=== PATIENT | female | born 1960 | race Caucasian/White ===

== ENCOUNTER 2021-01-28 20:34 | Inpatient (IN) | payer OTHER ==
[~2021-01-28] VITALS: Ht 162.6 cm; Wt 88.9 kg
[2021-01-28 21:45] LABS: BASOPHIL 0 % (0-2); EOSINOPHIL 0 % (0-5); HCT 37.8 % (37.0-47.0); HGB 12.5 g/dl (12.5-16.0); LYMPHOCYTE 16.2 % (15-48); MCH 29.2 pg (25.0-31.0); MCHC 33.1 g/dL (32.0-36.0); MCV 88.3 fL (78.0-100.0); MONOCYTE 6.5 % (0-12); MPV 10.6 fL (6.0-9.5); NEUTROPHIL 76.6 % (41-80); NRBC 0; PLT 146 K/uL (150-400); RBC 4.28 M/uL (4.20-5.40); RDW 12.3 % (11.5-14.0); WBC 4.5 K/uL (4.0-10.5)
[2021-01-28 21:59] LABS: BILIRUBIN - TOTAL 0.5 mg/dL (0.2-1.0); BUN/CREAT RATIO (CALC) 14.6 RATIO; CREATININE 0.82 mg/dL (0.51-0.95); GLOBULIN (CALCULATION) 3.8 g/dL; POTASSIUM 3.9 mmol/L (3.5-5.1); TOTAL PROTEIN 6.8 g/dL (6.4-8.2)
[2021-01-28 22:17] LABS: INFLUENZA A NAA NEGATIVE (NEGATIVE)
[2021-01-28 22:20] LABS: CORONAVIRUS 2019 SARS-COV-2 POSITIVE (NEGATIVE)
[2021-01-28 22:58] LABS: LACTIC ACID 1.1 mmol/L (0.4-1.9)
[2021-01-29 07:41] LABS: BASOPHIL 0 % (0-2); EOSINOPHIL 0 % (0-5); HCT 38.7 % (37.0-47.0); HGB 12.8 g/dl (12.5-16.0); LYMPHOCYTE 26.8 % (15-48); MCH 29.1 pg (25.0-31.0); MCHC 33.1 g/dL (32.0-36.0); MONOCYTE 4.4 % (0-12); MPV 10.7 fL (6.0-9.5); NEUTROPHIL 68.2 % (41-80); NRBC 0; PLT 140 K/uL (150-400); RDW 12.2 % (11.5-14.0); WBC 3.4 K/uL (4.0-10.5)
[2021-01-29 08:03] LABS: BUN/CREAT RATIO (CALC) 15.3 RATIO; CREATININE 0.72 mg/dL (0.51-0.95); POTASSIUM 3.9 mmol/L (3.5-5.1)
[2021-01-29 18:01] LABS: BILIRUBIN NEGATIVE (NEGATIVE); BLOOD TRACE-INTACT Ery/uL (NEGATIVE); CLARITY CLEAR (CLEAR); COLOR YELLOW (YELLOW); GLUCOSE (U) NORMAL (NORMAL); LEUKOCYTES NEGATIVE Leu/uL (NEGATIVE); NITRITE NEGATIVE (NEGATIVE); PROTEIN TRACE (LOW) mg/dL (NEGATIVE); pH 6.5 (5.0-9.0)
[2021-01-29 18:08] LABS: BARBITURATES NEGATIVE (NEGATIVE); ECSTASY (MDMA) NEGATIVE (NEGATIVE); MARIJUANA (THC) NEGATIVE (NEGATIVE); METHADONE NEGATIVE (NEGATIVE); OPIATES NEGATIVE (NEGATIVE)
[2021-01-29 18:09] LABS: AMPHETAMINES NEGATIVE (NEGATIVE); OXYCODONE NEGATIVE (NEGATIVE)
[2021-01-29 18:12] LABS: BACTERIA 1+
[2021-01-29 18:13] LABS: URINARY RBC RARE
[2021-01-30 07:17] LABS: BASOPHIL 0.2 % (0-2); EOSINOPHIL 0 % (0-5); HCT 37.1 % (37.0-47.0); HGB 12.2 g/dl (12.5-16.0); LYMPHOCYTE 26.7 % (15-48); MCHC 32.9 g/dL (32.0-36.0); MCV 88.1 fL (78.0-100.0); MONOCYTE 12.5 % (0-12); MPV 10.7 fL (6.0-9.5); NEUTROPHIL 59.3 % (41-80); NRBC 0; PLT 155 K/uL (150-400); RBC 4.21 M/uL (4.20-5.40); RDW 12.1 % (11.5-14.0); WBC 5.4 K/uL (4.0-10.5)
[2021-01-30 08:39] LABS: ALBUMIN 2.8 g/dL (3.4-5.0); BILIRUBIN - TOTAL 0.3 mg/dL (0.2-1.0); BUN/CREAT RATIO (CALC) 21.5 RATIO; CREATININE 0.79 mg/dL (0.51-0.95); GLOBULIN (CALCULATION) 3.8 g/dL; TOTAL PROTEIN 6.6 g/dL (6.4-8.2)
--- NOTE | 2021-01-30 16:13 | NUR ---
01/30 Ms. Ralph lives with her spouse in [place], [place]. She was visiting her daughter her in [place], Aileen Ralph, . Ms. Ralph was independent prior to admission. She is not sure at this point if she will go to the home of her daughter or back to [facility]. Ms Ralph chose [facility] if 02 is needed at discharge. Sam can serve her out of the [place] Office and [place] office.
[2021-01-31 06:24] LABS: BASOPHIL 0.1 % (0-2); EOSINOPHIL 0 % (0-5); HCT 37.8 % (37.0-47.0); HGB 12.6 g/dl (12.5-16.0); LYMPHOCYTE 17.1 % (15-48); MCH 29.4 pg (25.0-31.0); MCHC 33.3 g/dL (32.0-36.0); MCV 88.3 fL (78.0-100.0); MONOCYTE 11.3 % (0-12); MPV 10.7 fL (6.0-9.5); NEUTROPHIL 70.2 % (41-80); NRBC 0; PLT 163 K/uL (150-400); RBC 4.28 M/uL (4.20-5.40); WBC 7.9 K/uL (4.0-10.5)
[2021-01-31 07:24] LABS: ALBUMIN 2.7 g/dL (3.4-5.0); BILIRUBIN - TOTAL 0.4 mg/dL (0.2-1.0); BUN/CREAT RATIO (CALC) 24.3 RATIO; CREATININE 0.74 mg/dL (0.51-0.95); GLOBULIN (CALCULATION) 3.5 g/dL; POTASSIUM 4.1 mmol/L (3.5-5.1); TOTAL PROTEIN 6.2 g/dL (6.4-8.2)
[2021-02-04 05:47] LABS: HCT 40.5 % (37.0-47.0); HGB 13.4 g/dl (12.5-16.0); MCH 29.4 pg (25.0-31.0); MCHC 33.1 g/dL (32.0-36.0); MCV 88.8 fL (78.0-100.0); MPV 11.1 fL (6.0-9.5); RBC 4.56 M/uL (4.20-5.40); RDW 12.1 % (11.5-14.0); WBC 17.4 K/uL (4.0-10.5)
[2021-02-04 06:10] LABS: CREATININE 0.69 mg/dL (0.51-0.95); POTASSIUM 4.3 mmol/L (3.5-5.1)
--- NOTE | 2021-02-04 16:34 | NUR ---
1630: O2 DECREASED TO 90% ON VAPOTHERM, PT SAT 91-92%. WILL CONTINUE TO MONITOR.
--- NOTE | 2021-02-04 18:44 | NUR ---
1630: PT DECREASED FROM 100% FIO2 TO 90%, NO LONGER REQUIRING NRB, O2 SATS MAINTAINING AT 91%. WILL CONTINUE TO EVALUATE.
--- NOTE | 2021-02-04 18:45 | NUR ---
1400: PT REMOVED NRB WHILE EATING LUNCH AND HAS CONTINUED TO KEEP NRB OFF, MAINTAINING O2 SATS AT 91%. WILL CONTINUE TO MONITOR.
--- NOTE | 2021-02-04 18:46 | NUR ---
1820: PT DESAT TO 85 ON 90% VAPOTHERM, INCREASED TO 100% ENCOURAGED PT TO CONTINUE TO PERFORM DEEP BREATHING EXERCISES AND ISB.
--- NOTE | 2021-02-04 18:49 | NUR ---
1835: PT SAT 89-90% COUGHING OFTEN, NRB REPLACED.
[2021-02-07 06:11] LABS: BASOPHIL 0.1 % (0-2); EOSINOPHIL 0 % (0-5); HCT 36.6 % (37.0-47.0); HGB 12.2 g/dl (12.5-16.0); LYMPHOCYTE 3.7 % (15-48); MCHC 33.3 g/dL (32.0-36.0); MCV 86.9 fL (78.0-100.0); MONOCYTE 7.1 % (0-12); MPV 11.3 fL (6.0-9.5); NEUTROPHIL 88.1 % (41-80); NRBC 0; PLT 248 K/uL (150-400); RBC 4.21 M/uL (4.20-5.40); RDW 12.2 % (11.5-14.0); WBC 11.6 K/uL (4.0-10.5)
[2021-02-07 07:04] LABS: BUN/CREAT RATIO (CALC) 37.7 RATIO; CREATININE 0.61 mg/dL (0.51-0.95); POTASSIUM 4.7 mmol/L (3.5-5.1)
--- NOTE | 2021-02-09 01:25 | NUR ---
02/08/2021 @ 1999. RT AT BEDSIDE AND TITRATED OXIMIZER TO 10L. PATIENT DOING WELL AND O2 SAT IS > 93% AT THIS TIME.
--- NOTE | 2021-02-09 01:43 | NUR ---
RT AT BEDSIDE TITRATING OXIMIZER TO 12 L DUE TO DECREASED O2 SAT WHEN MBULATING UP TO BSC.
[2021-02-10 14:17] LABS: BASOPHIL 0.1 % (0-2); EOSINOPHIL 0.8 % (0-5); HCT 41.1 % (37.0-47.0); HGB 13.5 g/dl (12.5-16.0); LYMPHOCYTE 5.5 % (15-48); MCH 29.2 pg (25.0-31.0); MCHC 32.8 g/dL (32.0-36.0); MCV 88.8 fL (78.0-100.0); MONOCYTE 3.1 % (0-12); MPV 11.4 fL (6.0-9.5); NEUTROPHIL 89.7 % (41-80); NRBC 0; PLT 283 K/uL (150-400); RBC 4.63 M/uL (4.20-5.40); RDW 12.5 % (11.5-14.0); WBC 19.7 K/uL (4.0-10.5)
[2021-02-10 14:19] LABS: BUN/CREAT RATIO (CALC) 36.9 RATIO; CREATININE 0.65 mg/dL (0.51-0.95); MAGNESIUM 2.3 mg/dL (1.8-2.4); POTASSIUM 4.5 mmol/L (3.5-5.1)
[2021-02-11 07:01] LABS: BASOPHIL 0 % (0-2); EOSINOPHIL 0.4 % (0-5); HCT 36.7 % (37.0-47.0); HGB 12.3 g/dl (12.5-16.0); LYMPHOCYTE 5.8 % (15-48); MCH 29.7 pg (25.0-31.0); MCHC 33.5 g/dL (32.0-36.0); MCV 88.6 fL (78.0-100.0); MONOCYTE 3.7 % (0-12); MPV 11.3 fL (6.0-9.5); NEUTROPHIL 88.9 % (41-80); NRBC 0; PLT 216 K/uL (150-400); RBC 4.14 M/uL (4.20-5.40); RDW 12.2 % (11.5-14.0); WBC 10.9 K/uL (4.0-10.5)
[2021-02-11 07:15] LABS: CREATININE 0.49 mg/dL (0.51-0.95); POTASSIUM 4.3 mmol/L (3.5-5.1)
--- NOTE | 2021-02-13 18:33 | NUR ---
OXYGEN AT 12LITERS OXMIZER AT 1000 OXYGEN AT 10 LITERS AT 1400
[2021-02-14 07:02] LABS: BASOPHIL 0.2 % (0-2); EOSINOPHIL 0.6 % (0-5); HCT 38.4 % (37.0-47.0); HGB 12.5 g/dl (12.5-16.0); LYMPHOCYTE 9.4 % (15-48); MCH 28.9 pg (25.0-31.0); MCHC 32.6 g/dL (32.0-36.0); MCV 88.9 fL (78.0-100.0); MONOCYTE 5.1 % (0-12); MPV 11.7 fL (6.0-9.5); NEUTROPHIL 83.9 % (41-80); NRBC 0; PLT 235 K/uL (150-400); RBC 4.32 M/uL (4.20-5.40); RDW 12.4 % (11.5-14.0); WBC 11.9 K/uL (4.0-10.5)
[2021-02-14 07:45] LABS: BUN/CREAT RATIO (CALC) 44.2 RATIO; CREATININE 0.52 mg/dL (0.51-0.95); MAGNESIUM 2.2 mg/dL (1.8-2.4); PHOSPHORUS 2.8 mg/dL (2.6-4.7); POTASSIUM 4.3 mmol/L (3.5-5.1)
--- NOTE | 2021-02-15 02:32 | NUR ---
SPOKE WITH RESP TECH R/T DECREASING OXYGEN IN ORDER TO ATTEMPT TO WEAN, STATED THAT PATIENT WAS UNABLE TO LOWER OXYGEN RATE D/T RECENT DROPPING OF OXYGEN SATURATION IN 60'S WITH RECENT ATTEMPT, PRESENTLY SHE IS AT 15 LITERS VIA OXIMIZER. PLAN: ATTEMPT DECREASE AT LATER TIME.
--- NOTE | 2021-02-15 04:04 | NUR ---
RESP TECH REPORTED SHE WAS ABLE TO DECREASE OXYGEN LEVEL TO 10 LITERS WITH PATIENT MAINTAIN SAT'S ABOVE 92%.
[2021-02-17 07:22] LABS: BASOPHIL 0.1 % (0-2); EOSINOPHIL 0.9 % (0-5); HCT 41.6 % (37.0-47.0); HGB 13.6 g/dl (12.5-16.0); LYMPHOCYTE 16.3 % (15-48); MCH 29.2 pg (25.0-31.0); MCHC 32.7 g/dL (32.0-36.0); MCV 89.3 fL (78.0-100.0); MONOCYTE 4.5 % (0-12); MPV 11.1 fL (6.0-9.5); NEUTROPHIL 77.3 % (41-80); NRBC 0; PLT 218 K/uL (150-400); RBC 4.66 M/uL (4.20-5.40); RDW 12.7 % (11.5-14.0); WBC 10.2 K/uL (4.0-10.5)
[2021-02-17 08:19] LABS: ALBUMIN 2.7 g/dL (3.4-5.0); BILIRUBIN - TOTAL 0.5 mg/dL (0.2-1.0); BUN/CREAT RATIO (CALC) 29.6 RATIO; CREATININE 0.71 mg/dL (0.51-0.95); MAGNESIUM 2.4 mg/dL (1.8-2.4); PHOSPHORUS 3.6 mg/dL (2.6-4.7); POTASSIUM 4.3 mmol/L (3.5-5.1); TOTAL PROTEIN 6.7 g/dL (6.4-8.2)
--- NOTE | 2021-02-18 06:50 | NUR ---
REPORT GIVEN TO ASHLEY
[2021-02-18 07:54] LABS: BASOPHIL 0.2 % (0-2); EOSINOPHIL 0.9 % (0-5); HCT 42.5 % (37.0-47.0); HGB 13.8 g/dl (12.5-16.0); LYMPHOCYTE 15.1 % (15-48); MCH 29.2 pg (25.0-31.0); MCHC 32.5 g/dL (32.0-36.0); MONOCYTE 5.6 % (0-12); MPV 11.1 fL (6.0-9.5); NEUTROPHIL 77.4 % (41-80); NRBC 0; PLT 207 K/uL (150-400); RBC 4.72 M/uL (4.20-5.40); RDW 12.7 % (11.5-14.0); WBC 10.6 K/uL (4.0-10.5)
[2021-02-18 08:05] LABS: ALBUMIN 2.9 g/dL (3.4-5.0); BILIRUBIN - TOTAL 0.6 mg/dL (0.2-1.0); BUN/CREAT RATIO (CALC) 24.4 RATIO; CREATININE 0.82 mg/dL (0.51-0.95); MAGNESIUM 2.5 mg/dL (1.8-2.4); POTASSIUM 4.2 mmol/L (3.5-5.1); TOTAL PROTEIN 6.9 g/dL (6.4-8.2)
--- NOTE | 2021-02-20 21:39 | NUR ---
2140- CVANYCOMYICIN SIGNED GIVEN, WAS NOT GIVEN DUE TO CRITICAL HIGH VANC TROUGH LEVEL OF 30.5, HELD PER PHARMACY ORDER.
[2021-02-22 04:36] LABS: BASOPHIL 0.1 % (0-2); EOSINOPHIL 0.8 % (0-5); HCT 36.8 % (37.0-47.0); HGB 11.8 g/dl (12.5-16.0); LYMPHOCYTE 13.6 % (15-48); MCH 29.5 pg (25.0-31.0); MCHC 32.1 g/dL (32.0-36.0); MONOCYTE 6.3 % (0-12); MPV 10.5 fL (6.0-9.5); NRBC 0; PLT 136 K/uL (150-400); RDW 13.4 % (11.5-14.0); WBC 8.7 K/uL (4.0-10.5)
[2021-02-22 05:15] LABS: CREATININE 1.05 mg/dL (0.51-0.95); MAGNESIUM 2.1 mg/dL (1.8-2.4)
[2021-02-24 07:01] LABS: BASOPHIL 0.2 % (0-2); EOSINOPHIL 0.6 % (0-5); HCT 36.4 % (37.0-47.0); HGB 11.9 g/dl (12.5-16.0); LYMPHOCYTE 17.1 % (15-48); MCH 29.2 pg (25.0-31.0); MCHC 32.7 g/dL (32.0-36.0); MCV 89.2 fL (78.0-100.0); MPV 10.7 fL (6.0-9.5); NEUTROPHIL 73.3 % (41-80); NRBC 0; PLT 127 K/uL (150-400); RBC 4.08 M/uL (4.20-5.40); RDW 13.3 % (11.5-14.0); WBC 8.7 K/uL (4.0-10.5)
[2021-02-24 07:21] LABS: BUN/CREAT RATIO (CALC) 21.9 RATIO; CREATININE 0.96 mg/dL (0.51-0.95); POTASSIUM 3.3 mmol/L (3.5-5.1)
--- NOTE | 2021-02-25 08:00 | NUR ---
PATIENTS [place] CATH REMOVED THIS AM PER MD ORDER, PATIENT TOLERATED WELL.
--- NOTE | 2021-02-27 12:41 | NUR ---
02/27/21 Ms. Ralph will be discharged today. She is going to the home of her daughter, Jessie Nowak at [address] [place] [address] [place] [address] - [phone]. A referral has been made to [facility] for 02 at 6 L oximizer, rw and 3in1. [facility] will deliver the portables, rw, and 3in1 to the hospital. Another [facility] office will deliver the concentrator to the home. [facility] will notify the [place] RN when the concentrator is in the home. - A HHR cannot be made because Ms. Ralph does not have a PCP. She plans to schedule an appointment with a RN RELIEF CHARGE in [place]. Report given to Dr. Vela and Lillian, [place] RN.
[2021-02-27] MEDS ORDERED: MEDROL 4MG DOSEP4 MG PO (18:28)
[2021-02-27] MEDS ORDERED: ATROVENT HFA12.9 GM INH (18:28)
[2021-02-27] MEDS ORDERED: SINGULAIR10 MG PO (18:28)
[2021-02-27] MEDS ORDERED: DULERA 200 MCG8.8 GM INH (18:28)
[2021-02-27] MEDS ORDERED: VENTOLIN HFA IN18 GM INH (18:28)
[2021-02-27] MEDS ORDERED: XANAX0.5 MG PO (18:28)
== END 2021-02-27 20:55 | disposition home or self-care (01) | DRG 177 ==
LOC: FER 20:34 → FTCU 22:59 → FMS 22:59 → FTCU 02-03 11:30 → FMS 02-09 08:50
PROVIDERS: Hospitalist; Internal Medicine; Nurse Practitioner; Nurse Practitioner Family; ADMIT Internal Medicine
PROC: XW033E5 Introduction of Remdesivir Anti-infective into Peripheral Vein, Percutaneous Approach, New Technology Group 5 (ICD-10-PCS; principal; 2021-01-28)
PROC: XW0DXM6 Introduction of Baricitinib into Mouth and Pharynx, External Approach, New Technology Group 6 (ICD-10-PCS; 2021-01-29)
PROC: 5A0955A Assistance with Respiratory Ventilation, Greater than 96 Consecutive Hours, High Flow/Velocity Cannula (ICD-10-PCS; 2021-02-03)
PROC: 0T9B70Z Drainage of Bladder with Drainage Device, Via Natural or Artificial Opening (ICD-10-PCS; 2021-02-21)
PROC: 05HY33Z Insertion of Infusion Device into Upper Vein, Percutaneous Approach (ICD-10-PCS; 2021-02-22)
DX: U07.1 COVID-19 (principal); J12.82 Pneumonia due to coronavirus disease 2019; J96.01 Acute respiratory failure with hypoxia; J15.9 Unspecified bacterial pneumonia; L89.312 Pressure ulcer of right buttock, stage 2; L89.322 Pressure ulcer of left buttock, stage 2; M19.90 Unspecified osteoarthritis, unspecified site; F41.9 Anxiety disorder, unspecified; E87.70 Fluid overload, unspecified; K12.0 Recurrent oral aphthae; R32 Unspecified urinary incontinence; Y95 Nosocomial condition; E87.6 Hypokalemia; Z98.890 Other specified postprocedural states; Z99.81 Dependence on supplemental oxygen
CPT/HCPCS: 36415; 36600; 71045; 71275; 80048; 80053; 80202; 80305; 81001; 82728; 82803; 83605; 83735; 83880; 84100; 84145; 85025; 87070; 87077; 87186; 87205; 93005; 94010; 94640; 94664; 94667; 94668; 94760; 94762; C9399; J0133; J0456; J1100; J1642; J1650; J1956; J2405; J3370; J7030; J7040; J7050; J7060; J8540; Q9967; U0002